=== PATIENT | male | born 1975 | race African-American/Black ===

== ENCOUNTER 2019-01-19 15:47 | Outpatient (CLI) | payer OTHER ==
[2019-01-19 16:18] LABS: MEAN CORPUSCULAR HEMOGLOBIN 32.2 pg (28.0-34.0)
[2019-01-19 16:19] LABS: BASOPHILS % 1 % (0-2); EOSINOPHILS % 4 % (0-7); MONOCYTES % 7 % (0-11); SEGMENTED NEUTROPHILS % 52 % (39-79)
[2019-01-19 16:20] LABS: PLT EST. EST. AGREES W/PLT CT; eGFR (Non-African) > 60
== END 2019-01-19 15:55 ==
LOC: LAB 15:47
PROVIDERS: ATTEND General Practice
DX: K50.90 Crohn's disease, unspecified, without complications (principal)
CPT/HCPCS: 36415; 80053; 85025